=== PATIENT | female | born 1960 | race Caucasian/White ===

== ENCOUNTER → 2016-10-12 | Outpatient (CLI) | payer MEDICARE | END | disposition home or self-care (01) | LOC: CFH 09:56 | PROVIDERS: ATTEND Internal Medicine Gastroenterology | DX: K44.9 Diaphragmatic hernia without obstruction or gangrene (principal); R11.2 Nausea with vomiting, unspecified; Z90.49 Acquired absence of other specified parts of digestive tract; Z98.1 Arthrodesis status | CPT/HCPCS: 74000 ==

== ENCOUNTER → 2016-10-26 | Outpatient (CLI) | payer MEDICARE | END | disposition home or self-care (01) | LOC: CFH 07:15 | PROVIDERS: ATTEND Internal Medicine Gastroenterology | DX: K59.00 Constipation, unspecified (principal) | CPT/HCPCS: 74250 ==

== ENCOUNTER 2017-02-24 06:32 | Day surgery (SDC) | payer MEDICARE ==
[2017-02-21 11:24] LABS: HEMATOCRIT 35.6 % (34.6-47.8); HEMOGLOBIN 11.8 g/dL (11.7-16.4); WHITE BLOOD COUNT 5.2 x10^3/uL (3.4-10)
[2017-02-21 11:37] LABS: BLOOD UREA NITROGEN 16 mg/dL (7-18)
[2017-02-21 11:38] LABS: ASPARTATE AMINO TRANSFERASE 9 U/L (15-37)
[~2017-02-24] VITALS: Ht 162.6 cm; Wt 69.1 kg
[~2017-02-24 06:32] MED LIST: BACL20TA PO; CARV25TA12 PO; LACT1CAP35 PO; LEVO200T5 PO; ONDA4TAB13 SL; PANT40TA5 PO
[2017-02-24] MEDS ORDERED: LACTATED RINGERS 1,000 ML IV SCH (07:02)
[2017-02-24 07:29] VITALS: BP 159/98
[2017-02-24] MEDS ORDERED: HYDR25TA6 PO (07:29)
[2017-02-24] MEDS ORDERED: FENTANYL PF 100 MCG/2ML ONE ×3 (08:04→12:01)
[2017-02-24] MEDS ORDERED: MIDAZOLAM 1 MG/ML, 2ML ONE (08:05)
[2017-02-24] MEDS ORDERED: METRONIDAZOLE PMX 500MG/100ML 100 ML IV ONE (08:30)
[2017-02-24] MEDS ORDERED: BUPIVACAINE/PF 0.25% ONE ×2 (08:32→10:04)
[2017-02-24] MEDS ORDERED: EPINEPHRINE 1 MG/ML, 1ML ONE (08:32)
[2017-02-24] MEDS ORDERED: VASOPRESSIN 20 UNIT/ML, 1ML ONE (08:33)
[2017-02-24] MEDS ORDERED: METRONIDAZOLE PMX 500MG/100ML 100 ML ONE (08:43)
[2017-02-24] MEDS ORDERED: GENTAMICIN 80 MG/2 ML ONE (08:43)
[2017-02-24] MEDS ORDERED: BUPIVACAINE/PF 0.5% ONE (08:43)
[2017-02-24] MEDS ORDERED: DEXAMETHASONE 4 MG/ML, 5ML ONE (08:59)
[2017-02-24] MEDS ORDERED: ONDANSETRON 2MG/ML, 2ML ONE ×2 (08:59→11:46)
[2017-02-24] MEDS ORDERED: PROPOFOL 10 MG/ML, 20ML ONE (08:59)
[2017-02-24] MEDS ORDERED: ROCURONIUM 10 MG/ML ONE (08:59)
[2017-02-24] MEDS ORDERED: SUCCINYLCHOLINE 20 MG/ML, 10ML ONE (08:59)
[2017-02-24] MEDS ORDERED: MEPERIDINE/PF 25MG/0.5ML IVPush PRN (10:00)
[2017-02-24] MEDS ORDERED: PROMETHAZINE 25 MG/ML, 1ML IV PRN (10:00)
[2017-02-24] MEDS ORDERED: ONDANSETRON 2MG/ML, 2ML IVPush PRN (10:00)
[2017-02-24] MEDS ORDERED: HYDROmorphone 1 MG/ML, 1ML IV PRN (10:00)
[2017-02-24] MEDS ORDERED: OXYcodone 5 MG/5 ML ORAL.SOL UDC PO PRN (10:00)
[2017-02-24] MEDS ORDERED: FENTANYL PF 100 MCG/2ML IV PRN (10:00)
[2017-02-24] MEDS ORDERED: ACETAMINOPHEN 325 MG TABLET PO PRN (10:00)
[2017-02-24] MEDS ORDERED: LABETALOL 5MG/ML, 20ML IV PRN (10:00)
[2017-02-24] MEDS ORDERED: hydrALAzine 20 MG/ML, 1ML IV PRN (10:00)
[2017-02-24] MEDS ORDERED: FLUORESCEIN SODIUM 500 MG/5 ML ONE (10:22)
[2017-02-24] MEDS ORDERED: PROMETHAZINE 25 MG/ML, 1ML ONE (12:02)
[2017-02-24] MEDS ORDERED: MEPERIDINE/PF 25MG/0.5ML ONE (12:02)
[2017-02-24] MEDS ORDERED: ACETAMINOPHEN 650 MG/20.3 ML UDC ONE (12:21)
[2017-02-24] MEDS ORDERED: OXYcodone 5 MG/5 ML ORAL.SOL UDC ONE (12:22)
== END 2017-02-24 15:40 | disposition home or self-care (01) ==
LOC: OUT 06:32 → MERGE 09:00 → OUT 15:40
PROVIDERS: ATTEND Obstetrics & Gynecology Gynecology
DX: N73.6 Female pelvic peritoneal adhesions (postinfective) (principal); N80.9 Endometriosis, unspecified; J45.909 Unspecified asthma, uncomplicated; K21.9 Gastro-esophageal reflux disease without esophagitis; E03.9 Hypothyroidism, unspecified; I10 Essential (primary) hypertension; Z98.890 Other specified postprocedural states; Z90.79 Acquired absence of other genital organ(s)
CPT/HCPCS: 36415; 52000; 58660; 71020; 80053; 85027; 85610; 85730; 93005; J0171; J0330; J1100; J1580; J2175; J2250; J2405; J2550; J2704; J3010; J3490; J7120

== ENCOUNTER → 2017-08-02 | Outpatient (CLI) | payer MEDICARE ==
[~2017-08-02] MED LIST changes: +HYDR25TA6 PO
== END | disposition home or self-care (01) ==
LOC: RAD 09:10
PROVIDERS: ATTEND Family Medicine Sports Medicine
DX: M17.11 Unilateral primary osteoarthritis, right knee (principal); S83.241A Other tear of medial meniscus, current injury, right knee, initial encounter; J45.909 Unspecified asthma, uncomplicated; I25.10 Atherosclerotic heart disease of native coronary artery without angina pectoris; E11.9 Type 2 diabetes mellitus without complications; I73.9 Peripheral vascular disease, unspecified; K21.9 Gastro-esophageal reflux disease without esophagitis; M25.461 Effusion, right knee; X58.XXXA Exposure to other specified factors, initial encounter; Y93.89 Activity, other specified; Y92.89 Other specified places as the place of occurrence of the external cause; Y99.8 Other external cause status

== ENCOUNTER → 2017-09-18 | Outpatient (CLI) | payer MEDICARE | END | disposition home or self-care (01) | LOC: RAD 12:04 | PROVIDERS: ATTEND Orthopaedic Surgery | DX: S83.012A Lateral subluxation of left patella, initial encounter (principal); M25.462 Effusion, left knee; X58.XXXA Exposure to other specified factors, initial encounter; Y93.89 Activity, other specified; Y92.89 Other specified places as the place of occurrence of the external cause; Y99.8 Other external cause status ==

== ENCOUNTER → 2017-09-28 | Outpatient (CLI) | payer MEDICARE ==
[~2017-09-28] MED LIST changes: +OMNIPAQUE 350 MG/ML, 100ML BOTTLE ONE
== END | disposition home or self-care (01) ==
LOC: CFH 10:00
PROVIDERS: ATTEND Specialist
DX: N73.6 Female pelvic peritoneal adhesions (postinfective) (principal)
CPT/HCPCS: 74177; 82565; Q9967

== ENCOUNTER → 2018-04-26 | Outpatient (CLI) | payer MEDICARE ==
[~2018-04-26] MED LIST changes: +ALBU8.5H8 INH; -OMNIPAQUE 350 MG/ML, 100ML BOTTLE ONE
[2018-04-26 11:28] LABS: ANION GAP 5 mmol/L (5-15); CALCIUM 8.8 mg/dL (8.5-10.1); CHLORIDE 105 mmol/L (98-107)
[2018-04-26 11:30] LABS: INTERNATIONAL NORMALIZED RATIO 0.97 (0.93-1.1)
[2018-04-26 11:34] LABS: ALANINE AMINOTRANSFERASE 25 U/L (12-78); ALKALINE PHOSPHATASE 94 U/L (45-117); BILIRUBIN,TOTAL 0.2 mg/dL (0.2-1.0); CREATININE 0.87 mg/dL (0.55-1.02); TOTAL PROTEIN 7.4 g/dL (6.4-8.2)
[2018-04-26 12:47] LABS: BASOPHILS # (AUTO) 0.04 x10^3/uL (0-0.1); BASOPHILS % (AUTO) 1 % (0-1); EOSINOPHILS # (AUTO) 0.16 x10^3/uL (0-0.4); EOSINOPHILS % (AUTO) 3 % (1-7); LYMPHOCYTES # (AUTO) 2.15 x10^3/uL (1-3.4); LYMPHOCYTES % (AUTO) 34 % (22-44); MD NO; MEAN CORPUSCULAR HEMOGLOBIN 29.4 pg (27.0-34.8); MEAN CORPUSCULAR HGB CONC 33.5 g/dL (32.4-35.8); MEAN CORPUSCULAR VOLUME 87.9 fL (80-100); MEAN PLATELET VOLUME 8.9 fL (7.4-10.4); MONOCYTES % (AUTO) 5 % (2-9); NEUTROPHILS # (AUTO) 3.63 x10^3/uL (1.8-6.8); NEUTROPHILS % (AUTO) 58 % (42-75); PLATELET COUNT 293 x10^3/uL (130-400); RED BLOOD COUNT 4.43 x10^6/uL (3.82-5.3); RED CELL DISTRIBUTION WIDTH 14.1 % (9.6-15.2)
== END | disposition home or self-care (01) ==
LOC: STAR 10:15
PROVIDERS: ATTEND Specialist
DX: Z01.818 Encounter for other preprocedural examination (principal); R10.2 Pelvic and perineal pain
CPT/HCPCS: 36415; 80053; 85025; 85610; 85730

== ENCOUNTER 2018-04-30 06:17 | Day surgery (SDC) | payer MEDICARE ==
[~2018-04-30] VITALS: Ht 162.6 cm; Wt 78.4 kg
[2018-04-30] MEDS ORDERED: BUPIVACAINE/PF-EPI 0.5% 1:200K ONE (06:48)
[2018-04-30] MEDS ORDERED: LACTATED RINGERS 1,000 ML IV SCH (06:50)
[2018-04-30 07:10] VITALS: BP 144/90
[2018-04-30] MEDS ORDERED: GABAPENTIN 300 MG CAPSULE PO ONE (07:30)
[2018-04-30] MEDS ORDERED: ACETAMINOPHEN 500 MG TABLET PO ONE (07:30)
[2018-04-30] MEDS ORDERED: SCOPOLAMINE PATCH, 1.5MG PATCH.TD72 TD ONE (07:30)
[2018-04-30] MEDS ORDERED: FENTANYL PF 250 MCG/5ML ONE (07:45)
[2018-04-30] MEDS ORDERED: LABETALOL 5MG/ML, 20ML IV PRN (08:00)
[2018-04-30] MEDS ORDERED: HALOPERIDOL 5 MG/ML IV PRN (08:00)
[2018-04-30] MEDS ORDERED: HYDROmorphone 1 MG/ML, 1ML IV PRN (08:00)
[2018-04-30] MEDS ORDERED: OXYcodone 5 MG/5 ML ORAL.SOL UDC PO PRN (08:00)
[2018-04-30] MEDS ORDERED: DIPHENHYDRAMINE 50 MG/ML, 1ML IVPush PRN (08:00)
[2018-04-30] MEDS ORDERED: PROCHLORPERAZINE 5 MG/ML, 2ML IV PRN (08:00)
[2018-04-30] MEDS ORDERED: MEPERIDINE/PF 25MG/0.5ML IVPush PRN (08:00)
[2018-04-30] MEDS ORDERED: hydrALAzine 20 MG/ML, 1ML IV PRN (08:00)
[2018-04-30] MEDS ORDERED: CLINDAMYCIN 150 MG/ML, 6ML ONE (08:15)
[2018-04-30] MEDS ORDERED: MIDAZOLAM 1 MG/ML, 2ML ONE (08:16)
[2018-04-30] MEDS ORDERED: ALBUTEROL SULFATE 200 PUFFS/8.5 GR INH ONE (08:23)
[2018-04-30] MEDS ORDERED: GLYCOPYRROLATE 0.2MG/1ML, 5ML ONE (09:15)
[2018-04-30] MEDS ORDERED: ROCURONIUM 10MG/ML,5ML ONE (09:15)
[2018-04-30] MEDS ORDERED: SUCCINYLCHOLINE 20 MG/ML, 10ML ONE (09:15)
[2018-04-30] MEDS ORDERED: DEXAMETHASONE 4 MG/ML, 1ML ONE (09:15)
[2018-04-30] MEDS ORDERED: NEOSTIGMINE 1 MG/ML, 10ML ONE (09:15)
[2018-04-30] MEDS ORDERED: CEFAZOLIN 1,000 MG ONE (09:15)
[2018-04-30] MEDS ORDERED: ONDANSETRON 2MG/ML, 2ML ONE (09:15)
[2018-04-30] MEDS ORDERED: PROPOFOL 10 MG/ML, 20ML ONE (09:15)
[2018-04-30] MEDS ORDERED: FENTANYL PF 100 MCG/2ML ONE (09:42)
[2018-04-30] MEDS ORDERED: OXYcodone 5 MG/5 ML ORAL.SOL UDC ONE (09:42)
[2018-04-30] MEDS: FENTANYL PF 100 MCG/2ML IV PRN ×2 (09:45→10:05)
[2018-04-30] MEDS ORDERED: OXYcodone/APAP 5/325MG TABLET ONE (13:16)
[2018-04-30] MEDS ORDERED: OXYcodone/APAP 5/325MG TABLET PO ONE (13:30)
== END 2018-04-30 15:45 | disposition home or self-care (01) ==
LOC: OUT 06:17
PROVIDERS: ATTEND Specialist
DX: K66.0 Peritoneal adhesions (postprocedural) (postinfection) (principal); G89.29 Other chronic pain; I10 Essential (primary) hypertension; E03.9 Hypothyroidism, unspecified; K21.9 Gastro-esophageal reflux disease without esophagitis; Z88.8 Allergy status to other drugs, medicaments and biological substances; Z90.710 Acquired absence of both cervix and uterus; Z88.0 Allergy status to penicillin; Z98.890 Other specified postprocedural states; Z87.891 Personal history of nicotine dependence; Z88.5 Allergy status to narcotic agent
CPT/HCPCS: 36415; 49320; 86850; 86900; 86923; 88305; C1769; J0330; J0690; J1100; J2250; J2405; J2704; J2710; J3010; J3490; J7120

== ENCOUNTER 2019-01-05 17:12 | Emergency (ER) | payer MEDICARE ==
[~2019-01-05] VITALS: Ht 162.6 cm; Wt 82.0 kg
--- NOTE | 2019-01-05 17:31 | NUR ---
pt ambulated indep to room from triage, changed into gown, responds approp to staff, NAD, comfort measures provided, call light within reach; cardiac, NIBP & SpO2 monitors in place.
[2019-01-05 17:58] VITALS: BP 117/91
--- NOTE | 2019-01-05 17:59 | NUR ---
pt upright on gurney awake & calm, responds approp to staff, NAD at rest, comfort measures provided, call light within reach.
--- NOTE | 2019-01-05 18:23 | NUR ---
Patient given discharge instructions and they have confirmed that they understand the instructions. Patient ambulatory with steady gait.
== END 2019-01-05 18:34 | disposition home or self-care (01) ==
LOC: ED 18:25
DX: M94.0 Chondrocostal junction syndrome [Tietze] (principal); I10 Essential (primary) hypertension; J45.909 Unspecified asthma, uncomplicated
CPT/HCPCS: 93005; 99283

== ENCOUNTER 2019-02-09 19:42 | Emergency (ER) | payer MEDICARE ==
[~2019-02-09] VITALS: Ht 162.6 cm; Wt 80.0 kg
[2019-02-09 19:53] VITALS: BP 146/92
[2019-02-09] MEDS ORDERED: LIDOCAINE 1%-EPI 1:100K, 20ML ONE (20:13)
[2019-02-09] MEDS ORDERED: DIPH,PERTUSS(ACELL),TET VAC/PF 0.5 ML IM-VACC ONE (20:30)
[2019-02-09] MEDS ORDERED: KETOROLAC 30 MG/1 ML IM ONE (20:30)
[2019-02-09] MEDS ORDERED: LIDOCAINE 1%-EPI 1:100K, 20ML SQ ONE (20:30)
[2019-02-09] MEDS ORDERED: KETOROLAC 30 MG/1 ML ONE (20:35)
--- NOTE | 2019-02-09 20:58 | NUR ---
REPORT RECEIVED FROM NATASHA MEJIA.
--- NOTE | 2019-02-09 21:12 | NUR ---
JULIA AND AT BEDSIDE FOR LAC REPAIR.
[2019-02-09] MEDS ORDERED: CLINDAMYCIN 150 MG/ML, 6ML IM ONE (21:30)
--- NOTE | 2019-02-09 21:35 | NUR ---
MEDICATION REQUEST FORM SENT TO PHARMACY.
[2019-02-09] MEDS ORDERED: CLINDAMYCIN 150 MG/ML, 6ML ONE (21:41)
[2019-02-09] MEDS ORDERED: CIPROFLOXACIN 500 MG TABLET ONE (21:49)
--- NOTE | 2019-02-09 21:50 | NUR ---
PT MEDICATED PER MAR.
[2019-02-09] MEDS ORDERED: CIPROFLOXACIN 500 MG TABLET PO ONE (22:00)
[2019-02-09] MEDS ORDERED: HYDROcodone/APAP 5/325 TABLET ONE (22:15)
--- NOTE | 2019-02-09 22:21 | NUR ---
PT MEDICATED PER MAR.
--- NOTE | 2019-02-09 22:22 | NUR ---
Patient/Caregiver given discharge instructions and they have confirmed that they understand the instructions. Patient ambulatory with steady gait.
[2019-02-09] MEDS ORDERED: HYDROcodone/APAP 5/325 TABLET PO ONE (22:30)
== END 2019-02-09 22:24 | disposition home or self-care (01) ==
LOC: MERGE 22:10 → ED 22:10
DX: S51.852A Open bite of left forearm, initial encounter (principal); S51.812A Laceration without foreign body of left forearm, initial encounter; M25.532 Pain in left wrist; I10 Essential (primary) hypertension; W54.0XXA Bitten by dog, initial encounter; Y93.89 Activity, other specified; Y92.410 Unspecified street and highway as the place of occurrence of the external cause; Y99.8 Other external cause status
CPT/HCPCS: 12032; 73090; 73110; 90471; 90715; 96372; 99285; J1885; J3490; S0077

== ENCOUNTER → 2019-06-17 | Outpatient (CLI) | payer MEDICARE | END | disposition home or self-care (01) | LOC: RAD 11:56 | PROVIDERS: ATTEND Orthopaedic Surgery | DX: S83.272A Complex tear of lateral meniscus, current injury, left knee, initial encounter (principal); M25.472 Effusion, left ankle; M76.32 Iliotibial band syndrome, left leg; M94.262 Chondromalacia, left knee; X58.XXXA Exposure to other specified factors, initial encounter; Y93.89 Activity, other specified; Y92.89 Other specified places as the place of occurrence of the external cause; Y99.8 Other external cause status ==

== ENCOUNTER 2019-07-11 08:05 | Outpatient (CLI) | payer MEDICARE ==
[2019-07-11 08:50] LABS: BASOPHILS # (AUTO) 0.07 x10^3/uL (0-0.1); BASOPHILS % (AUTO) 1 % (0-1); EOSINOPHILS % (AUTO) 2 % (1-7); LYMPHOCYTES # (AUTO) 2.11 x10^3/uL (1-3.4); LYMPHOCYTES % (AUTO) 31 % (22-44); MD NO; MEAN CORPUSCULAR HEMOGLOBIN 30.3 pg (27.0-34.8); MEAN CORPUSCULAR HGB CONC 33.2 g/dL (32.4-35.8); MEAN CORPUSCULAR VOLUME 91.1 fL (80-100); MEAN PLATELET VOLUME 7.9 fL (7.4-10.4); MONOCYTES % (AUTO) 6 % (2-9); NEUTROPHILS # (AUTO) 4.19 x10^3/uL (1.8-6.8); NEUTROPHILS % (AUTO) 61 % (42-75); PLATELET COUNT 333 x10^3/uL (130-400); RED BLOOD COUNT 4.39 x10^6/uL (3.82-5.3); RED CELL DISTRIBUTION WIDTH 13.2 % (9.6-15.2)
[2019-07-11 09:00] LABS: ANION GAP 4 mmol/L (5-15); CALCIUM 8.8 mg/dL (8.5-10.1); CHLORIDE 107 mmol/L (98-107)
[2019-07-11 09:02] LABS: INTERNATIONAL NORMALIZED RATIO 0.93 (0.93-1.1); PROTHROMBIN TIME 9.8 Seconds (9.6-11.5)
[2019-07-11 10:29] LABS: ALBUMIN 3.7 g/dL (3.4-5.0)
[2019-07-11 10:31] LABS: ALANINE AMINOTRANSFERASE 21 U/L (12-78); BILIRUBIN,TOTAL 0.3 mg/dL (0.2-1.0); TOTAL PROTEIN 6.9 g/dL (6.4-8.2)
[2019-07-11 10:40] LABS: ALKALINE PHOSPHATASE 74 U/L (45-117)
== END 2019-07-11 23:59 | disposition home or self-care (01) ==
LOC: STAR 08:05
PROVIDERS: ATTEND Orthopaedic Surgery
DX: Z01.818 Encounter for other preprocedural examination (principal); M17.12 Unilateral primary osteoarthritis, left knee
CPT/HCPCS: 36415; 80053; 83036; 85025; 85610; 85730; 87081; 93005

== ENCOUNTER 2019-07-17 06:35 | Observation (INO) | payer MEDICARE ==
[~2019-07-17] VITALS: Ht 162.6 cm; Wt 82.4 kg
[~2019-07-17 06:35] MED LIST changes: +EPINEPHRINE 1 MG/ML, 1ML ONE; +KETOROLAC 60 MG/2 ML ONE; +ROPIvacaine/PF 0.5%, 30 ML ONE; +SODIUM CHLORIDE 0.9% 50 ML ONE; +TRANEXAMIC ACID 100 MG/ML, 10ML ONE; +VANCOMYCIN 1,000 MG ONE
[2019-07-17] MEDS: NS + 20MEQ KCL 1,000 ML IV SCH ×2 (06:39→19:09)
[2019-07-17] MEDS ORDERED: MIDAZOLAM 1 MG/ML, 2ML ONE (06:43)
[2019-07-17] MEDS ORDERED: FENTANYL PF 250 MCG/5ML ONE (06:43)
[2019-07-17] MEDS ORDERED: GENTAMICIN 80 MG/2 ML ONE (06:47)
[2019-07-17] MEDS ORDERED: PHENYLEPHRINE 10 MG/ML ONE (06:50)
[2019-07-17] MEDS ORDERED: VANCOMYCIN 1,000 MG ONE (06:52)
[2019-07-17] MEDS ORDERED: BISACODYL 10 MG SUPP PR PRN (07:00)
[2019-07-17] MEDS ORDERED: VANCOMYCIN PMX 1GM/200ML 200 ML IV ONE (07:00)
[2019-07-17] MEDS ORDERED: DIPHENHYDRAMINE 25 MG CAPSULE PO PRN (07:00)
[2019-07-17] MEDS ORDERED: TEMPLATE NON-FORMULARY MED. (Baclofen** 20 MG) PO SCH (07:00)
[2019-07-17] MEDS ORDERED: LACTATED RINGERS 1,000 ML IV SCH ×2 (07:00→07:12)
[2019-07-17] MEDS ORDERED: HYDROcodone/APAP 5/325 TABLET PO PRN (07:00)
[2019-07-17] MEDS ORDERED: HYDROmorphone 1 MG/ML, 1ML INJ IV PRN (07:00)
[2019-07-17] MEDS ORDERED: ONDANSETRON 4 MG TABLET PO PRN (07:00)
[2019-07-17] MEDS ORDERED: ACETAMINOPHEN 650 MG/20.3 ML UDC PO PRN (07:00)
[2019-07-17] MEDS ORDERED: MAGNESIUM HYDROXIDE 8%, 30ML UDC PO PRN (07:00)
[2019-07-17] MEDS ORDERED: SCOPOLAMINE PATCH, 1.5MG PATCH.TD72 TD ONE ×2 (07:00)
[2019-07-17] MEDS ORDERED: ONDANSETRON 2MG/ML, 2ML IV PRN (07:00)
[2019-07-17] MEDS ORDERED: ACETAMINOPHEN 500 MG TABLET PO ONE (07:00)
[2019-07-17] MEDS ORDERED: ZOLPIDEM 5MG TABLET PO PRN (07:00)
[2019-07-17] MEDS ORDERED: SENNA/DOCUSATE TABLET PO PRN (07:00)
[2019-07-17] MEDS ORDERED: TEMPLATE NON-FORMULARY MED. (Albuterol Sulfate (Proair Hfa) 1 PUFF) INH SCH (07:00)
[2019-07-17 07:08] VITALS: BP 129/87
[2019-07-17] MEDS ORDERED: MORPHINE SULFATE 4 MG/ML, 1ML IVPush PRN (07:30)
[2019-07-17] MEDS ORDERED: GABAPENTIN 300 MG CAPSULE PO ONE (07:30)
[2019-07-17] MEDS ORDERED: OXYcodone 5 MG/5 ML ORAL.SOL UDC PO PRN (07:30)
[2019-07-17] MEDS ORDERED: MEPERIDINE/PF 25MG/ML,1ML IVPush PRN (07:30)
[2019-07-17] MEDS ORDERED: hydrALAzine 20 MG/ML, 1ML IV PRN (07:30)
[2019-07-17] MEDS ORDERED: HYDROmorphone 2 MG/ML, 1ML IVPush PRN (07:30)
[2019-07-17] MEDS ORDERED: PROMETHAZINE 25 MG/ML, 1ML IV PRN (07:30)
[2019-07-17] MEDS ORDERED: LABETALOL 5MG/ML, 20ML IV PRN (07:30)
[2019-07-17] MEDS ORDERED: HALOPERIDOL 5 MG/ML IV PRN (07:30)
[2019-07-17] MEDS ORDERED: VANCOMYCIN PMX 1GM/200ML 200 ML IV STA (07:32)
[2019-07-17] MEDS ORDERED: DEXAMETHASONE 4 MG/ML, 1ML ONE (07:49)
[2019-07-17] MEDS ORDERED: ONDANSETRON 2MG/ML, 2ML ONE (07:49)
[2019-07-17] MEDS ORDERED: PROPOFOL 10 MG/ML, 20ML ONE (07:49)
[2019-07-17] MEDS ORDERED: ROCURONIUM 10MG/ML,5ML ONE (07:49)
[2019-07-17] MEDS ORDERED: GLYCOPYRROLATE 0.2MG/1ML, 5ML ONE (07:49)
[2019-07-17] MEDS ORDERED: NEOSTIGMINE 1 MG/ML, 10ML ONE (07:49)
[2019-07-17] MEDS: PANTOPRAZOLE 40MG TABLET PO SCH ×2 (09:00→20:57)
[2019-07-17] MEDS: DOCUSATE 100 MG CAPSULE PO SCH ×2 (09:00→20:55)
[2019-07-17] MEDS: HYDROCHLOROTHIAZIDE 25 MG TABLET PO SCH (09:00)
[2019-07-17] MEDS: CARVEDILOL 25 MG TABLET PO SCH ×2 (09:00→20:55)
[2019-07-17] MEDS: LEVOTHYROXINE 200 MCG TABLET PO SCH (09:00)
[2019-07-17] MEDS ORDERED: TRANEXAMIC ACID 100 MG/ML, 10ML ONE (09:57)
[2019-07-17] MEDS ORDERED: OXYcodone 5 MG/5 ML ORAL.SOL UDC ONE ×2 (10:04→11:00)
[2019-07-17] MEDS ORDERED: FENTANYL PF 100 MCG/2ML ONE (10:04)
[2019-07-17] MEDS: FENTANYL PF 100 MCG/2ML IV PRN ×4 (10:05→10:40)
[2019-07-17] MEDS: BACLOFEN MC SCH ×2 (12:00→20:00)
[2019-07-17] MEDS: OXYcodone IR 5MG TABLET PO PRN ×3 (13:13→20:55)
[2019-07-17 15:31] VITALS: BP 139/86
[2019-07-17] MEDS: ASPIRIN 81 MG TABLET EC PO SCH (18:14)
[2019-07-17 18:58] VITALS: BP 177/88
[2019-07-18 00:15] VITALS: BP 154/85
[2019-07-18] MEDS: OXYcodone IR 5MG TABLET PO PRN ×3 (01:44→09:59)
[2019-07-18 03:41] VITALS: BP 136/76
[2019-07-18] MEDS: BACLOFEN MC SCH (04:00)
[2019-07-18] MEDS ORDERED: DEXAMETHASONE 4 MG/ML, 1ML IVPush SCH (06:00)
[2019-07-18] MEDS: ASPIRIN 81 MG TABLET EC PO SCH (06:07)
[2019-07-18 07:34] VITALS: BP 174/92
[2019-07-18] MEDS: NS + 20MEQ KCL 1,000 ML IV SCH (07:39)
[2019-07-18] MEDS: LEVOTHYROXINE 200 MCG TABLET PO SCH (07:44)
[2019-07-18] MEDS: CARVEDILOL 25 MG TABLET PO SCH (07:44)
[2019-07-18] MEDS: PANTOPRAZOLE 40MG TABLET PO SCH (07:44)
[2019-07-18] MEDS: DOCUSATE 100 MG CAPSULE PO SCH (07:44)
[2019-07-18] MEDS: HYDROCHLOROTHIAZIDE 25 MG TABLET PO SCH (07:44)
[2019-07-18] MEDS ORDERED: MELO7.5T31 PO (09:54)
[2019-07-18] MEDS ORDERED: OXYC5CAP2 PO (09:55)
[2019-07-18] MEDS ORDERED: TRAM50TA2 PO (09:56)
[2019-07-18] MEDS ORDERED: ASPI81TA45 PO (09:59)
== END 2019-07-18 11:57 | disposition home or self-care (01) ==
LOC: OUT 06:35 → 4NE 11:37 → OUT 21:57 → 4NE 21:57 → DCLOUNGE 07-18 11:39
PROVIDERS: ADMIT Orthopaedic Surgery; ATTEND Orthopaedic Surgery
DX: M17.12 Unilateral primary osteoarthritis, left knee (principal); E03.9 Hypothyroidism, unspecified; K21.9 Gastro-esophageal reflux disease without esophagitis; I10 Essential (primary) hypertension; J45.909 Unspecified asthma, uncomplicated; Z88.0 Allergy status to penicillin; Z88.5 Allergy status to narcotic agent; Z85.850 Personal history of malignant neoplasm of thyroid
CPT/HCPCS: 27447; 36415; 85014; 85018; 96374; 97110; 97161; C1713; C1776; G0378; J0171; J1100; J1580; J1885; J2250; J2370; J2405; J2704; J2710; J2795; J3010; J3370; J7120; Q0162

== ENCOUNTER 2020-03-28 09:25 | Emergency (ER) | payer MEDICARE ==
[~2020-03-28] VITALS: Ht 162.6 cm; Wt 83.0 kg
[~2020-03-28 09:25] MED LIST changes: +ASPI81TA45 PO; -EPINEPHRINE 1 MG/ML, 1ML ONE; -KETOROLAC 60 MG/2 ML ONE; +MELO7.5T31 PO; +OXYC5CAP2 PO; -PANT40TA5 PO; +PANT40TA6 PO; -ROPIvacaine/PF 0.5%, 30 ML ONE; -SODIUM CHLORIDE 0.9% 50 ML ONE; +TRAM50TA2 PO; -TRANEXAMIC ACID 100 MG/ML, 10ML ONE; -VANCOMYCIN 1,000 MG ONE
[2020-03-28] MEDS ORDERED: FAMOTIDINE 20 MG TABLET ONE (09:54)
--- NOTE | 2020-03-28 09:59 | NUR ---
PT SITTING ON GURNEY WATCHING TV. VSS, COMPLAINTS OF ITCHING, MEDICATED PER EMAR. NO ADDITONAL NEEDS AT THIS TIME, CALL LIGHT WITHIN REACH. WILL CONTINUE TO MONITOR.
[2020-03-28] MEDS ORDERED: FAMOTIDINE 20 MG TABLET PO ONE (10:00)
--- NOTE | 2020-03-28 11:00 | NUR ---
PT SITTING ON GURNEY COMFORTABLY. NAD, VSS. PT STATES "ITCHING HAS GOTTEN BETTER SINCE THE MEDICATIONS BUT I STILL HAVE SOME ITCHING." PT UP TO BATHROOM WITH CURATOR OF COLLECTIONS. NO ADDITIONAL NEEDS AT THIS TIME. CALL LIGHT WITHIN REACH.
[2020-03-28 11:49] VITALS: BP 158/82
--- NOTE | 2020-03-28 11:50 | NUR ---
Patient given discharge instructions and they have confirmed that they understand the instructions. Patient ambulatory with steady gait.
== END 2020-03-28 11:52 | disposition home or self-care (01) ==
LOC: ED 10:01
DX: R21 Rash and other nonspecific skin eruption (principal); T38.0X5A Adverse effect of glucocorticoids and synthetic analogues, initial encounter; G89.29 Other chronic pain; I10 Essential (primary) hypertension; J45.909 Unspecified asthma, uncomplicated; Z87.891 Personal history of nicotine dependence
CPT/HCPCS: 99283; Q0177